=== PATIENT | female | born 1985 | race African-American/Black ===

== ENCOUNTER → 2016-11-21 | Outpatient (CLI) | payer SELFPAY ==
--- NOTE | 2016-11-21 15:36 | RADIOLOGY REPORT (SQ) ---
EXAM DESCRIPTION: U/S [id number] TRNABD 1GES W/ODOP COMPLETED DATE/TIME: 11/21/2016 3:24 pm REASON FOR STUDY: ENCOUNTER FOR SUPERVISION OF OTHER NORMAL FIRST TRIMESTER Z34.[address] FOR SUPRVSN OF NORMAL , FIRST TRIM COMPARISON: None. TECHNIQUE: Transabdominal static and realtime grayscale images acquired of the pelvis. Additional se lected spectral and color Doppler images recorded. All images stored on PACs. bHCG: None available LIMITATIONS: None. FINDINGS: FETUS: Living intrauterine . EGA: 10 weeks 4 days DUNCAN: 06/15/2017 FHR: 171 beats per minute. SUBCHORIONIC BLEED: No SIZE OF BLEED: Not applicable. UTERUS: No masses. No anomalies. Uterus is 11 x 9 x 7 cm in size. CERVICAL LENGTH: 3 cm Closed. RIGHT ADNEXA: Normal ovary with normal vascular flow. Right ovary 3.4 x 2.1 x 1.7 cm in size No adnexal free fluid. No adnexal masses. LEFT ADNEXA: Not visualized due to adnexal bowel gas. FREE FLUID: None. OTHER: No other significant finding. IMPRESSION: LIVING INTRAUTERINE . EGA 10 weeks 4 days Trimester of : First - 0 to 13 weeks. TECHNICAL DOCUMENTATION: JOB ID: [id number] [employer]- All Rights Reserved
== END ==
LOC: RAD 14:52
PROVIDERS: ATTEND Nurse Practitioner Women's Health
DX: Z34.81 Encounter for supervision of other normal pregnancy, first trimester (principal)
CPT/HCPCS: 76801

== ENCOUNTER → 2017-01-31 | Outpatient (CLI) | payer SELFPAY ==
--- NOTE | 2017-01-31 15:09 | RADIOLOGY REPORT (SQ) ---
EXAM DESCRIPTION: U/S OB 14+ TRNABD 1GES W/O DOP COMPLETED DATE/TIME: 01/31/2017 2:24 pm REASON FOR STUDY: Z34.82 ENCOUNTER FOR SUPRVSN OF NORMAL , SECOND TRIMESTER Z34.82 ENCOUNT ER FOR SUPRVSN OF NORMAL , SECOND TRI COMPARISON: None. TECHNIQUE: Static and Dynamic grayscale imaging performed of gravid uterus using transabdominal appr oach. Additional selected color Doppler and spectral images recorded. All stored on PACS. LIMITATIONS: None. FINDINGS: EGA: 20 week 5 day. DUNCAN: 06/15/2017. EFW: 377 g. grams IRENE: Largest pocket 5.7 cm. PLACENTA: Anterior. GRADE: I PRESENTATION: Breech. ANATOMY: HEART RATE: 155 beats per minute. FOUR CHAMBER HEART: Visualized. THREE VESSEL CORD: Yes. CORD INSERTION: Visualized. KIDNEYS AND BLADDER: Visualized. Appear normal. STOMACH: Visualized. Appears normal. SPINE: Limited visualization due to positioning. BRAIN AND LATERAL VENTRICLES: Visualized. Appear normal. OTHER: No other significant finding. MATERNAL ADNEXA: Maternal ovaries not visualized. CERVICAL LENGTH: 4.0 cm. Closed. OTHER: No other significant finding. IMPRESSION: LIVING INTRAUTERINE . ESTIMATED GESTATIONAL AGE 20 WEEK 5 DAY. NO VISUALIZED ANOMALIES. Trimester of : Second trimester - 13 weeks 1 day to 27 weeks 6 days. TECHNICAL DOCUMENTATION: JOB ID: [id number] [employer] All Rights Reserved
== END ==
LOC: RAD 13:37
PROVIDERS: ATTEND Nurse Practitioner Women's Health
DX: Z34.82 Encounter for supervision of other normal pregnancy, second trimester (principal)
CPT/HCPCS: 76805

== ENCOUNTER → 2017-04-07 | Outpatient (CLI) | payer SELFPAY ==
--- NOTE | 2017-04-07 16:52 | RADIOLOGY REPORT (SQ) ---
EXAM DESCRIPTION: U/S OB 14+ TRNABD 1GES W/O DOP COMPLETED DATE/TIME: 04/07/2017 4:08 pm REASON FOR STUDY: ENCOUNTER FOR SUPERVISION OF OTHER NORMAL , THIRD TRIMESTER Z34.83 ENCOU NTER FOR SUPRVSN OF NORMAL , THIRD TRIM COMPARISON: 01/31/2017. TECHNIQUE: Static and Dynamic grayscale imaging performed of gravid uterus using transabdominal appr oach. Additional selected color Doppler and spectral images recorded. All stored on PACS. LIMITATIONS: A complete anatomic survey was performed. FINDINGS: EGA: 30 week 4 day. DUNCAN: 06/12/2017. EFW: 1510 g. grams PERCENTILE: 46%. IRENE: 12.1 cm. PLACENTA: Anterior. GRADE: I PRESENTATION: Breech. ANATOMY: HEART RATE: 160 beats per minute. SPINE: Normal as visualized. MATERNAL ADNEXA: Maternal ovaries not visualized. CERVICAL LENGTH: Not adequately visualized. OTHER: No other significant finding. IMPRESSION: LIVING INTRAUTERINE . ESTIMATED GESTATIONAL AGE 30 WEEK 4 DAY. NO GROSS ABNORMALITY. A COMPLETE AND SURVEY WAS NOT PERFORMED. Trimester of : Third trimester - 28 weeks to delivery. TECHNICAL DOCUMENTATION: JOB ID: [id number] [employer]- All Rights Reserved Reading location - IP/workstation name: [email or web address]
== END ==
LOC: WI 14:37
PROVIDERS: ATTEND Nurse Practitioner Women's Health
DX: Z34.83 Encounter for supervision of other normal pregnancy, third trimester (principal)
CPT/HCPCS: 76805

== ENCOUNTER 2017-05-28 15:58 | Outpatient (CLI) | payer MEDICAID ==
[2017-05-28 16:37] LABS: ABSOLUTE LYMPHOCYTES (AUTO) 1.5 10^3/uL (0.5-4.7); ABSOLUTE MONOCYTES (AUTO) 0.3 10^3/uL (0.1-1.4); ABSOLUTE NEUT (AUTO) 4.8 10^3/uL (1.7-8.2); BASOPHILS % (AUTO) 0.2 % (0-2); EOSINOPHILS % (AUTO) 0.4 % (0-6); HEMATOCRIT 35.9 % (36.0-47.0); LYMPHOCYTES % (AUTO) 21.9 % (13-45); MEAN CORPUSCULAR HEMOGLOBIN 28.2 pg (27.0-33.4); MEAN CORPUSCULAR HGB CONC 33.4 g/dL (32.0-36.0); MEAN CORPUSCULAR VOLUME 84 fl (80-97); MONOCYTES % (AUTO) 4.3 % (3-13); PLATELET COUNT 207 10^3/uL (150-450); RED BLOOD COUNT 4.26 10^6/uL (3.72-5.28); RED CELL DISTRIBUTION WIDTH 14.7 % (11.5-14.0); SEGMENTED NEUTROPHILS % (AUTO) 73.2 % (42-78); TOTAL CELLS COUNTED % (AUTO) 100 %; WHITE BLOOD COUNT 6.6 10^3/uL (4.0-10.5)
[2017-05-28 16:45] LABS: APPEARANCE,URINE SLIGHTLY-CLOUDY; BILIRUBIN,URINE NEGATIVE (NEGATIVE); COLOR,URINE YELLOW; GLUCOSE, URINE NEGATIVE (NEGATIVE); KETONES,URINE NEGATIVE (NEGATIVE); LEUKOCYTE ESTERASE,URINE NEGATIVE (NEGATIVE); NITRITE,URINE NEGATIVE (NEGATIVE); PROTEIN,URINE NEGATIVE (NEGATIVE); URINE SPECIFIC GRAVITY 1.018; UROBILINOGEN,URINE NEGATIVE mg/dL (<2.0)
[2017-05-28 16:57] LABS: ALANINE AMINOTRANSFERASE 19 U/L (9-52); ALBUMIN 3.6 g/dL (3.5-5.0); ALKALINE PHOSPHATASE 76 U/L (38-126); ANION GAP 12 (5-19); ASPARTATE AMINO TRANSFERASE 17 U/L (14-36); BILIRUBIN,DIRECT 0.3 mg/dL (0.0-0.4); BILIRUBIN,TOTAL 0.3 mg/dL (0.2-1.3); BLOOD UREA NITROGEN 11 mg/dL (7-20); CALCIUM 10.1 mg/dL (8.4-10.2); CARBON DIOXIDE 21 mmol/L (22-30); CHLORIDE 107 mmol/L (98-107); GLUCOSE 110 mg/dL (75-110); LDH 440 U/L (313-618); POTASSIUM 4.5 mmol/L (3.6-5.0); SODIUM 139.7 mmol/L (137-145); TOTAL PROTEIN 6.2 g/dL (6.3-8.2); URIC ACID 4.5 mg/dL (2.5-6.2)
[2017-05-28 17:01] LABS: URINE AMPHETAMINES SCREEN NEGATIVE; URINE BARBITURATES SCREEN NEGATIVE; URINE BENZODIAZEPINES SCREEN NEGATIVE; URINE COCAINE SCREEN NEGATIVE; URINE MARIJUANA (THC) SCREEN NEGATIVE; URINE METHADONE SCREEN NEGATIVE; URINE PHENCYCLIDINE SCREEN NEGATIVE
[2017-05-28 17:05] LABS: UR PRO/CREAT RATIO RESULT 0.1 mg/mg (0.0-0.2); URINE CREATININE 107.8 mg/dL (16-327); URINE PROTEIN 12.8 mg/dL (<12)
--- NOTE | 2017-05-28 17:16 | Non Stress Test Report ---
Non Stress Test Datetime Report Generated by CPN: 05/28/2017 17:16 INDICATION Indication for Study: Ordered by Provider MONITORING Monitor Explained: Monitor Explained; Test Explained; Patient Verbalized Understanding Time on Monitor: 05/28/2017 16:46 Time off Monitor: 05/28/2017 17:16 Time off Monitor: 05/28/2017 17:10 NST Duration: 30 NST INTERVENTIONS NST Interventions: PO Hydration Physician Notified NST: Dr Hinkle BABY A: [id number] BABY A Movement : Present Contraction Frequency : none FHR Baseline : 145 Accelerations : 15X15 Decelerations : None Variability : Moderate 6-25bpm NST Review: Meets Criteria for Reactive NST NST Review and Verified By : D Bellavance RNC NST Results: Reactive NST REPORT Report Trigger: Send Report
== END 2017-05-28 17:21 | disposition home or self-care (01) ==
LOC: LC 15:58
PROVIDERS: ATTEND Student in an Organized Health Care Education/Training Program
PROC: 4A1HXCZ Monitoring of Products of Conception, Cardiac Rate, External Approach (ICD-10-PCS; principal; 2017-05-28)
DX: O14.93 Unspecified pre-eclampsia, third trimester (principal); Z3A.37 37 weeks gestation of pregnancy
CPT/HCPCS: 36415; 80053; 80307; 81001; 82570; 83615; 84156; 84550; 85025

== ENCOUNTER 2017-06-05 14:04 | Outpatient (CLI) | payer MEDICAID ==
[2017-06-05 14:46] LABS: APPEARANCE,URINE CLOUDY; BILIRUBIN,URINE NEGATIVE (NEGATIVE); COLOR,URINE YELLOW; GLUCOSE, URINE NEGATIVE (NEGATIVE); KETONES,URINE NEGATIVE (NEGATIVE); LEUKOCYTE ESTERASE,URINE SMALL (NEGATIVE); NITRITE,URINE NEGATIVE (NEGATIVE); PROTEIN,URINE 30 mg/dL (NEGATIVE); URINE SPECIFIC GRAVITY 1.023; UROBILINOGEN,URINE NEGATIVE mg/dL (<2.0)
[2017-06-05 15:07] LABS: URINE AMPHETAMINES SCREEN NEGATIVE; URINE BARBITURATES SCREEN NEGATIVE; URINE BENZODIAZEPINES SCREEN NEGATIVE; URINE COCAINE SCREEN NEGATIVE; URINE MARIJUANA (THC) SCREEN NEGATIVE; URINE METHADONE SCREEN NEGATIVE; URINE PHENCYCLIDINE SCREEN NEGATIVE
[2017-06-05 15:28] LABS: UR PRO/CREAT RATIO RESULT 0.1 mg/mg (0.0-0.2); URINE CREATININE 113.3 mg/dL (16-327); URINE PROTEIN 9.9 mg/dL (<12)
[2017-06-05 16:18] LABS: ALANINE AMINOTRANSFERASE 23 U/L (9-52); ALBUMIN 3.4 g/dL (3.5-5.0); ALKALINE PHOSPHATASE 84 U/L (38-126); ANION GAP 13 (5-19); ASPARTATE AMINO TRANSFERASE 20 U/L (14-36); BILIRUBIN,DIRECT 0.2 mg/dL (0.0-0.4); BILIRUBIN,TOTAL 0.2 mg/dL (0.2-1.3); BLOOD UREA NITROGEN 10 mg/dL (7-20); CALCIUM 9.4 mg/dL (8.4-10.2); CARBON DIOXIDE 21 mmol/L (22-30); CHLORIDE 105 mmol/L (98-107); GLUCOSE 85 mg/dL (75-110); LDH 419 U/L (313-618); POTASSIUM 4.4 mmol/L (3.6-5.0); SODIUM 138.9 mmol/L (137-145); TOTAL PROTEIN 6.3 g/dL (6.3-8.2); URIC ACID 4.4 mg/dL (2.5-6.2)
--- NOTE | 2017-06-05 16:49 | Non Stress Test Report ---
Non Stress Test Datetime Report Generated by CPN: 06/05/2017 16:48 DEMOGRAPHIC EGA NST: 38.3 INDICATION Indication for Study: Ordered by Provider MONITORING Monitor Explained: Monitor Explained; Test Explained; Patient Verbalized Understanding Time on Monitor: 06/05/2017 14:20 Time off Monitor: 06/05/2017 16:36 NST Duration: 136 NST INTERVENTIONS NST Interventions: PO Hydration; Reposition Patient Physician Notified NST: Dr. Hinkle BABY A: [id number] BABY A Movement : Present Contraction Frequency : Irregular FHR Baseline : 140 Accelerations : 15X15 Decelerations : None Variability : Moderate 6-25bpm NST Review: Meets Criteria for Reactive NST NST Review and Verified By : Anita Perez RN NST Results: Reactive NST REPORT Report Trigger: Send Report
== END 2017-06-05 16:47 | disposition home or self-care (01) ==
LOC: LC 14:04
PROVIDERS: ATTEND Student in an Organized Health Care Education/Training Program
PROC: 4A1HXCZ Monitoring of Products of Conception, Cardiac Rate, External Approach (ICD-10-PCS; principal; 2017-06-05)
DX: O47.1 False labor at or after 37 completed weeks of gestation (principal); O99.283 Endocrine, nutritional and metabolic diseases complicating pregnancy, third trimester; E86.0 Dehydration; Z3A.38 38 weeks gestation of pregnancy
CPT/HCPCS: 36415; 59025; 80053; 80307; 81001; 82570; 83615; 84156; 84550

== ENCOUNTER 2017-06-09 21:03 | Inpatient (IN) | payer MEDICAID ==
[2017-06-09] MEDS ORDERED: DINOPROSTONE 10 MG VAGINAL INSERT.SR PV PRN (21:32)
[2017-06-09] MEDS ORDERED: RINGERS SOLUTION,LACTATED 300 ML IV ONE (21:32)
--- NOTE | 2017-06-09 21:45 | Admission Physical ---
Datetime Report Generated by CPN: 06/09/2017 21:44 CURRENT ADMISSION Chief Complaint: Scheduled Induction of Labor Indication for Induction: Gestational HTN Admit Impression : Term, Intrauterine ; No Active Labor; Intact Membranes; Induction of Labor Admit Plan: Admit to Unit; Initiate Labor Induction Protocol ALLERGIES Medication Allergies: No Medication Allergies: No Known Allergies (05/28/2017) Latex: No Latex Allergies Food Allergies: none Environmental Allergies: none OBSTETRICAL HISTORY EDC: 06/16/2017 00:00 : 2 Para: 0 Term: 0 : 0 SAB: 0 IAB: 1 Ectopic: 0 Livin Cesareans: 0 VBACs: 0 Multiple Births: 0 Gestational Diabetes: No Rh Sensitization: No Incompetent Cervix: No HAYLEY: No Infertility: No ART Treatment: No Uterine Anomaly: No IUGR: No Hx Previous C/S: No Macrosomia: No Hx Loss/Stillborn: No PIH: No Hx : No Placenta Previa/Abruption: No Depression/PP Depression: No PTL/PROM: No Post Hemorrhage: No Current Procedures: Ultrasound; NST Obstetrical History Comments: g1- EAB 2008 g2- current SEE RECORDS Alcohol: No Marijuana : No Cocaine: No Other Illicit Drugs: No Cigarettes: Never Smoker. [id number] MEDICAL HISTORY Diabetes: No Blood Transfusion: No Pulmonary Disease (Asthma, TB): No Breast Disease: No Hypertension: Yes Water Vessel Captain Surgery: No Heart Disease: No Hosp/Surgery: No Autoimmune Disorder: No Anesthetic Complications: No Kidney Disease: No Abnormal Pap Smear: No Neuro/Epilepsy: No Psychiatric Disorders: No Other Medical Diseases: No Hepatitis/Liver Disease: No Significant Family History: No Varicosities/Phlebitis: No Trauma/Violence : No Thyroid Dysfunction: No Medical History Comments: gestational hypertension INFECTIOUS HISTORY Gonorrhea: No Genital Herpes: No Chlamydia: No Tuberculosis: No Syphilis: No Hepatitis: No HIV/AIDS Exposure: No Rash or Viral Illness: No HPV: No PHYSICAL EXAM General: Normal HEENT: Normal Neurologic: Normal Thyroid: Deferred Heart: Normal Lungs: Normal Breast: Deferred Back: Normal Abdomen: Normal Genitourinary Exam: Normal Extremities: Normal DTRs: Normal Pelvic Type: Adequate Vital Signs: Reviewed Details Vital Signs: labile BPs VAGINAL EXAM Contraction Comments: rare MEMBRANES Membranes: Intact FETUS A EGA: 39.0 Monitoring: External US FHR- Baseline: 155 Variability: Moderate 6-25bpm Accelerations: 10X10 Decelerations: None FHR Category: Category II Presentation: Vertex Admit Comment: 32yo at 39.0ega presents for IOL due to GHTN with labile BPs. 24 hr UTP negative previously and was supposed to turn in another one but IOL scheduled before return ofn 24 hr UTP. c/b [facility] transfer at 37wks with only one visit there in Nov then no care until approx 05/20 (GBS and GC/CT done) and then 3 visits at [facility]. IRENE decreased on 06/06 from prior week but still within normal limits. Vertex presentation. Anticipate . Pelvis unproven. PLANS FOR LABOR AND DELIVERY Labor and Delivery: None Pain Management: Epidural Feeding Preference: Breast Benefit of Breast Feed Discussed: Yes Circumcision: Yes INFORMED CONSENT Informed Consent Obtained: Vaginal Delivery; Induction of Labor; Risks, Benefits and Alternatives Discussed Signature: with User ID: [email or web address]
[2017-06-09 21:56] LABS: ABSOLUTE EOSINOPHILS # (AUTO) 0.1 10^3/uL (0.0-0.6); ABSOLUTE MONOCYTES (AUTO) 0.5 10^3/uL (0.1-1.4); ABSOLUTE NEUT (AUTO) 4.6 10^3/uL (1.7-8.2); BASOPHILS % (AUTO) 0.4 % (0-2); EOSINOPHILS % (AUTO) 0.7 % (0-6); HEMATOCRIT 37.7 % (36.0-47.0); HEMOGLOBIN 12.6 g/dL (12.0-15.5); LYMPHOCYTES % (AUTO) 28.1 % (13-45); MEAN CORPUSCULAR HEMOGLOBIN 28.4 pg (27.0-33.4); MEAN CORPUSCULAR HGB CONC 33.5 g/dL (32.0-36.0); MEAN CORPUSCULAR VOLUME 85 fl (80-97); MONOCYTES % (AUTO) 7.3 % (3-13); PLATELET COUNT 200 10^3/uL (150-450); RED BLOOD COUNT 4.45 10^6/uL (3.72-5.28); RED CELL DISTRIBUTION WIDTH 14.5 % (11.5-14.0); SEGMENTED NEUTROPHILS % (AUTO) 63.5 % (42-78); TOTAL CELLS COUNTED % (AUTO) 100 %; WHITE BLOOD COUNT 7.2 10^3/uL (4.0-10.5)
[2017-06-09 22:00] LABS: APPEARANCE,URINE SLIGHTLY-CLOUDY; BILIRUBIN,URINE NEGATIVE (NEGATIVE); COLOR,URINE YELLOW; GLUCOSE, URINE NEGATIVE (NEGATIVE); KETONES,URINE TRACE mg/dL (NEGATIVE); LEUKOCYTE ESTERASE,URINE NEGATIVE (NEGATIVE); NITRITE,URINE NEGATIVE (NEGATIVE); PROTEIN,URINE 30 mg/dL (NEGATIVE); URINE SPECIFIC GRAVITY 1.026
[2017-06-09] MEDS ORDERED: ACETAMINOPHEN 325 MG TABLET PO ONE (22:01)
[2017-06-09] MEDS ORDERED: ACETAMINOPHEN 325 MG TABLET ONE (22:04)
[2017-06-09] MEDS: RINGERS SOLUTION,LACTATED 1,000 ML IV PRN (22:06)
[2017-06-09 22:15] LABS: URINE CREATININE 199.9 mg/dL (16-327); URINE PROTEIN 8.3 mg/dL (<12)
[2017-06-09 22:31] LABS: URINE AMPHETAMINES SCREEN NEGATIVE; URINE BARBITURATES SCREEN NEGATIVE; URINE BENZODIAZEPINES SCREEN NEGATIVE; URINE COCAINE SCREEN NEGATIVE; URINE MARIJUANA (THC) SCREEN NEGATIVE; URINE METHADONE SCREEN NEGATIVE; URINE PHENCYCLIDINE SCREEN NEGATIVE
[2017-06-09] MEDS ORDERED: DINOPROSTONE 10 MG VAGINAL INSERT.SR ONE (22:55)
[2017-06-10] MEDS ORDERED: ACETAMINOPHEN 325 MG TABLET ONE ×3 (03:51→23:06)
[2017-06-10] MEDS ORDERED: MISOPROSTOL 0.1 MG TABLET PV ONE (12:16)
[2017-06-10] MEDS ORDERED: MISOPROSTOL 0.2 MG TABLET PO ONE (12:16)
[2017-06-10] MEDS ORDERED: MISOPROSTOL 0.1 MG TABLET ONE ×2 (12:56→17:43)
[2017-06-10] MEDS ORDERED: PROMETHAZINE HCL INJ 25 MG/1 ML VIAL ONE (21:23)
[2017-06-10] MEDS ORDERED: NALBUPHINE HCL INJ 10 MG/1 ML AMPULE ONE (21:24)
[2017-06-10] MEDS ORDERED: OXYTOCIN/NORMAL SALINE 20 UNIT/1,000 ML RTUINJ ONE (23:07)
[2017-06-11] MEDS ORDERED: EPHEDRINE SULFATE INJ 50 MG/1 ML AMPULE ONE (00:32)
[2017-06-11] MEDS ORDERED: FENTANYL/BUPIVACAINE/NS/PF 300 MCG/150 ML RTUINJ EPI ONE (00:32)
[2017-06-11] MEDS ORDERED: FENTANYL CITRATE INJ/PF 100 MCG/2 ML AMPUL ONE (00:32)
[2017-06-11] MEDS ORDERED: PHENYLEPHRINE HCL INJ/PF 10 MG/1 ML SDV ONE (00:32)
[2017-06-11] MEDS ORDERED: BUPIVACAINE HCL 0.25 % INJ/PF (2.5 MG/1 ML) 30 ML VIAL ONE (00:32)
[2017-06-11] MEDS: RINGERS SOLUTION,LACTATED 1,000 ML IV PRN (01:44)
[2017-06-11] MEDS ORDERED: MISOPROSTOL 0.2 MG TABLET ONE (03:03)
[2017-06-11] MEDS ORDERED: LIDOCAINE 1% INJ-PF (10 MG/ML) 30 ML SDV ONE (03:03)
--- NOTE | 2017-06-11 08:12 | L&D Progress Notes ---
PROGRESS NOTES Datetime Report Generated by CPN: 06/11/2017 08:12 PROGRESS NOTE Impression: Normal Progression of Labor; Reassuring Heart Rate Plan: Continue Present Management; Induction Informed Consent Obtained: Vaginal Delivery Informed Consent Obtained: Vaginal Delivery; Induction of Labor; Risks, Benefits and Alternatives Discussed Vital Signs : Reviewed; Within Normal Limits Comment: resting on left side, feeling more pressure, Cat 1 strip, uc's q 3 min Anticipate VAGINAL EXAM Contractions: rare MEMBRANES Membranes: Ruptured Membranes: Intact FETUS A Decelerations: Early Presentation: Vertex SIGNATURE SIGNATURE: ,[id number] SIGNATURE: [id number] SIGNATURE: [id number] SIGNATURE: ,[id number] Assignment: Jessi Green MD Signature: with User ID: [email or web address] : with User ID: [email or web address]
[2017-06-11] MEDS ORDERED: DIPHENHYDRAMINE HCL 50 MG CAPSULE PO ONE (09:59)
[2017-06-11] MEDS ORDERED: DIPHENHYDRAMINE HCL 50 MG/ML VIAL ONE (10:06)
[2017-06-11] MEDS ORDERED: ACETAMINOPHEN 325 MG TABLET ONE (10:06)
[2017-06-11] MEDS ORDERED: ACETAMINOPHEN 325 MG TABLET PO ONE (10:14)
--- NOTE | 2017-06-11 11:10 | L&D Progress Notes ---
PROGRESS NOTES Datetime Report Generated by CPN: 06/11/2017 11:10 PROGRESS NOTE Impression: Reassuring Heart Rate Procedures: Sterile Vag Exam Plan: Continue Present Management; Induction Comment: VE = thick ant lip, vtx/0, + bloody show. on left side, feeling pressure, change positions, anticipate , Cat 1 strip FETUS C SIGNATURE: 13,[id number];14,[id number];10,[id number] Assignment: Jessi Green MD Signature: with User ID: [email or web address] : with User ID: [email or web address]
--- NOTE | 2017-06-11 12:29 | L&D Progress Notes ---
PROGRESS NOTES Datetime Report Generated by CPN: 06/11/2017 12:28 PROGRESS NOTE Impression: Reassuring Heart Rate Procedures: Sterile Vag Exam Plan: Induction Vital Signs : Reviewed; Within Normal Limits Comment: Pushing, Cat 1 strip, variables with pushing, mod variability, uc's q 2 min x 60 sec, continue pushing. monitor closely FETUS C SIGNATURE: [id number];[id number];13,[id number] Assignment: Jessi Green MD Signature: with User ID: [email or web address] : with User ID: [email or web address]
[2017-06-11] MEDS ORDERED: AMPICILLIN SOD INJ 2 GM VIAL ONE (12:52)
[2017-06-11] MEDS ORDERED: AMPICILLIN SOD INJ 2 GM VIAL IV ONE (12:59)
[2017-06-11] MEDS ORDERED: GLYCERIN/WITCH HAZEL LEAF 1 EACH MED..PAD TP PRN (13:16)
[2017-06-11] MEDS ORDERED: ZOLPIDEM TARTRATE 5 MG TABLET PO PRN (13:16)
[2017-06-11] MEDS ORDERED: NA PHOS,M-B/NA PHOS,DI-BA (ADULT) 133 ML ENEMA PR PRN (13:16)
[2017-06-11] MEDS ORDERED: OXYTOCIN/NORMAL SALINE 20 UNIT/1,000 ML RTUINJ IV PRN (13:16)
[2017-06-11] MEDS ORDERED: PROMETHAZINE HCL 25 MG SUPP.RECT PR PRN (13:16)
[2017-06-11] MEDS ORDERED: BENZOCAINE/MENTHOL AEROSOL SPRAY 56 ML TOP PRN (13:16)
[2017-06-11] MEDS ORDERED: DIPH/PERTUSS(ACELL)/TETANUS VAC/PF 0.5 ML SYR (>=10YO) IM PRN (13:16)
[2017-06-11] MEDS ORDERED: DIPHENHYDRAMINE HCL 25 MG CAPSULE PO PRN (13:16)
[2017-06-11] MEDS ORDERED: PROMETHAZINE HCL 25 MG TABLET PO PRN (13:16)
[2017-06-11] MEDS ORDERED: ACETAMINOPHEN 650 MG SUPP.RECT PR PRN (13:16)
[2017-06-11] MEDS ORDERED: MAGNESIUM HYDROXIDE SUSP 30 ML UDCUP PO PRN (13:16)
[2017-06-11] MEDS ORDERED: PSEUDOEPHEDRINE HCL 30 MG TABLET PO PRN (13:16)
[2017-06-11] MEDS ORDERED: DIBUCAINE 1% OINTMENT 28 GM TP PRN (13:16)
[2017-06-11] MEDS ORDERED: PROMETHAZINE HCL INJ 25 MG/1 ML VIAL IV PRN (13:16)
[2017-06-11] MEDS ORDERED: MEASLES,MUMPS&RUBELLA VACC/PF 0.5 ML VIAL SUBCUT PRN (13:16)
--- NOTE | 2017-06-11 13:42 | Warning Signs in Babies ---
VOD Warning Signs Datetime Report Generated by [facility]: 06/11/2017 13:42 VOD#608 -Warning Signs in Babies: Viewed with Parent(s)/Family (06/11/2017 13:36:Vania Eduardo RN)
[2017-06-11] MEDS: IBUPROFEN 800 MG TABLET PO SCH ×2 (14:39→22:23)
[2017-06-11] MEDS ORDERED: IBUPROFEN 800 MG TABLET ONE (14:40)
--- NOTE | 2017-06-11 16:14 | Delivery Summary ---
Del Sum A-C Datetime Report Generated by CPN: 06/11/2017 16:14 DELIVERY PERSONNEL DELIVERY PERSONNEL: [id number] Delivery Doctor:: Jessi Green MD Nurse Oss Architect Certified:: Ella Delgado CNM Labor and Delivery Nurse:: Vania Eduardo RNschool age program associate Nurse:: ERIK White Nursery Nurse:: Naima Koo RN Lens Fabricating Machine Tender/NATURAL REMEDY CONSULTANT: Madison Espitia, REGIONAL MERCHANDISING MANAGER Lens Fabricating Machine Tender/NATURAL REMEDY CONSULTANT: Suad Scott NATURAL REMEDY CONSULTANT II MATERNAL INFORMATION Delivery Anesthesia: Epidural Medications After Delivery: Pitocin Bolus-Please Comment; Pitocin Drip 20 Units/1000ml NSS; Cytotec 600mcg Per Rectum/Vagina Meds After Delivery Comment: pitocin 20 units bolusing after delivery of placenta Maternal Complications: Chorioamnionitis Provider Comments: Pt not pushng well. tachy, maternal temp, Dr. Green notified Baby delivered by Kiwi vac by Dr. Green from OA to WILL over intact perineum, left vaginal abrasion, baby placed on mothers abd, cord clamped and cut by FOB after 2 minutes. Baby bonding with mom and father, + skin to skin. Pt as given Ampicillin 2 gm before delivery for elevated temp Spont delivery of grossly nl intact placenta, 3 vc, 3 sutures for vaginal abrasion IV Pitocin, massage and cytotec 600 mcg via rectum Baby and mom remain in recovery in stable condition LABOR SUMMARY EDC: 06/16/2017 00:00 No. Babies in Womb: 1 Attempted: No Labor Anesthesia: Epidural LABOR INFORMATION Reason for Induction: Gestational Hypertension Onset of Labor: 06/11/2017 02:51 Complete Dilatation: 06/11/2017 12:15 Cervical Ripening Agents: Cervidil; Cytotec @ Oxytocin: Induction Group B Beta Strep: Negative Antibiotics # of Doses: 1 Antibiotics Time of Last Dose: 1302 Name of Antibiotic Given: Ampicillin Steroids Given: None Reason Steroids Not Administered: Not Applicable MEMBRANES Membranes Rupture Method: Spontaneous Rupture of Membranes: 06/11/2017 06:43 Length of Rupture (hr): 6.47 Amniotic Fluid Color: Clear Amniotic Fluid Amount: Small Amniotic Fluid Odor: Foul STAGES OF LABOR Stage 1 hr: 9 Stage 1 min: 24 Stage 2 hr: 0 Stage 2 min: 56 Stage 3 hr: 0 Stage 3 min: 4 Total Time in Labor hr: 10 Total Time in Labor min: 24 VAGINAL DELIVERY Episiotomy: None Laceration #1: Vaginal Laceration Extension #1: First Degree Laceration Repair Note: 3-0 chromic Sponge Count Correct: N/A Sharps Count Correct: Yes CSECTION DELIVERY Primary Indication: N/A Secondary Indication: N/A CSection Incidence: N/A Labor: N/A Elective: N/A CSection Incision: N/A BABY A INFORMATION Delivery Date/Time: 06/11/2017 13:11 Method of Delivery: Vaginal Born in Route : No : N/A Forceps: N/A Vacuum Extraction: Successful Shoulder Dystocia : No PRESENTATION/POSITION BABY A Presentation: Cephalic Cephalic Presentation: Vertex Vertex Position: Right Occipital Anterior Breech Presentation: N/A PLACENTA INFORMATION BABY A Placenta Delivery Time : 06/11/2017 13:15 Placenta Method of Delivery: Spontaneous Placenta Status: Delivered SCORES BABY A Heart Rate 1 min: >100 bpm Resp Effort 1 min: Slow, Irregular Reflex Irritability 1 min: Cough or Sneeze or Pulls Away Muscle Tone 1 min: Active Motion Color 1 min: Blue/Pale Resuscitation Effort 1 min: Tactile Stimulation SCORE 1 MIN: 7 Heart Rate 5 min: >100 bpm Resp Effort 5 min: Good Cry Reflex Irritability 5 min: Cough or Sneeze or Pulls Away Muscle Tone 5 min: Active Motion Color 5 min: Body [place], Extremities Blue Resuscitation Effort 5 min: N/A SCORE 5 MIN: 9 Resuscitation Effort 10 min: N/A INFORMATION BABY A Gestational Age at Delivery: 39.2 Gestational Status: Full Term- 39- 40.6 Weeks Outcome : Liveborn Condition : Stable Sex: Male IDENTIFICATION BABY A Infant Verification Date/Time: 06/11/2017 13:54 ID Band Number: [id number] Mother's Name Verified: Yes RN Verifying : Mona Camp RNC Additional Verifying Personnel: Crystal Cheyenne RN WEIGHT/LENGTH BABY A Birthweight (gm): 3330 Infant Weight (lb): 7 Infant Weight (oz): 5 Infant Length (in): 20.25 Length (cm): 51.44 CORD INFORMATION BABY A No. Cord Vessels: 3 Nuchal Cord : N/A Cord Blood Taken: Yes-For Storage (Mom's Blood type +) Suction: None ASSESSMENT BABY A Complications: Extended Tachycardia; Multiple Late Decels; Multiple Variable Decels Physical Findings at Delivery: Caput Succedaneum; Puncture Wound from Scalp Electrode Respirations: Appears Normal Skin to Skin: Yes Skin to Skin Time (min): 10 Nail Galvanizer/ALS Called : No Care By: Enrique Koo RN Transferred To: Remains with Mother BABY B INFORMATION : N/A
[2017-06-11] MEDS: FERROUS SULFATE 325 MG TABLET PO SCH (19:34)
[2017-06-11] MEDS: DOCUSATE SODIUM 100 MG CAPSULE PO SCH (19:34)
[2017-06-11] MEDS: ACETAMINOPHEN WITH CODEINE #3 TABLET PO PRN (19:35)
[2017-06-11] MEDS: FAMOTIDINE 20 MG TABLET PO SCH (22:23)
[2017-06-12] MEDS: IBUPROFEN 800 MG TABLET PO SCH ×3 (06:15→23:13)
[2017-06-12 08:49] LABS: HEMOGLOBIN 10.5 g/dL (12.0-15.5); MEAN CORPUSCULAR HEMOGLOBIN 28.7 pg (27.0-33.4); MEAN CORPUSCULAR HGB CONC 33.8 g/dL (32.0-36.0); MEAN CORPUSCULAR VOLUME 85 fl (80-97); PLATELET COUNT 132 10^3/uL (150-450); RED BLOOD COUNT 3.66 10^6/uL (3.72-5.28); RED CELL DISTRIBUTION WIDTH 14.9 % (11.5-14.0); WHITE BLOOD COUNT 9.7 10^3/uL (4.0-10.5)
[2017-06-12] MEDS: PRENATAL VITAMIN W DHA CAPSULE PO SCH (09:16)
[2017-06-12] MEDS: SENNOSIDES/DOCUSATE 8.6-50 MG 1 EACH TABLET PO SCH (09:16)
[2017-06-12] MEDS: FAMOTIDINE 20 MG TABLET PO SCH (09:16)
[2017-06-12] MEDS: DOCUSATE SODIUM 100 MG CAPSULE PO SCH ×2 (09:17→17:49)
[2017-06-12] MEDS: FERROUS SULFATE 325 MG TABLET PO SCH ×2 (09:17→17:49)
--- NOTE | 2017-06-12 09:50 | PDOC PROGRESS REPORT ---
Subjective-OB Progress Note for:: 06/12/17 Physical Exam (OB) Vital Signs: Temp Pulse Resp BP Pulse Ox 98.6 F 86 18 130/79 H 96 06/12/17 08:46 06/12/17 08:46 06/12/17 08:46 06/12/17 08:46 06/12/17 08:46 - PIH/Pre-Eclampsia DTR's: 1 + Clonus: Negative Headache: Absent Epigastric Pain: No Visual Changes: No - Lochia Lochia Amount: Scant < 10 ml Lochia Color: Rubra/Red - Abdomen Description: Soft Hernia Present: No Bowel Sounds: Normoactive Flatus Presence: Present Stool: No Fundal Description: Firm, Midline Fundal Height: u/u - u/2 Objective-Diagnostic Laboratory: 06/12/17 08:26 06/12/17 08:26 WBC 9.7 RBC 3.66 L Hgb 10.5 L D Hct 31.0 L MCV 85 MCH 28.7 MCHC 33.8 RDW 14.9 H Plt Count 132 L
[2017-06-12] MEDS: ACETAMINOPHEN WITH CODEINE #3 TABLET PO PRN (16:09)
[2017-06-13] MEDS: FAMOTIDINE 20 MG TABLET PO SCH ×2 (01:55→10:24)
[2017-06-13 03:50] VITALS: BP 131/69
[2017-06-13] MEDS: IBUPROFEN 800 MG TABLET PO SCH ×2 (06:00→15:46)
--- NOTE | 2017-06-13 09:53 | PDOC DISCHARGE SUMMARY ---
Final Diagnosis Discharge Date: 06/13/17 Discharge Data - Discharge Medication Prescriptions: Acetaminophen with Codeine [Tylenol #3 Tablet] 2 each PO Q4HP PRN #14 tablet PRN Reason: Docusate Sodium [Colace 100 mg Capsule] 100 mg PO BID #60 capsule Ferrous Sulfate [Feosol 325 mg Tablet] 325 mg PO BID #60 tablet Ibuprofen [Motrin 800 mg Tablet] 800 mg PO Q8 #60 tablet Home Medications: Vit/Iron Fum/Folic AC [ Tablet] 1 each PO DAILY 05/28/17 Acetaminophen with Codeine [Tylenol #3 Tablet] 2 each PO Q4HP PRN #14 tablet 05/28 Docusate Sodium [Colace 100 mg Capsule] 100 mg PO BID #60 capsule 06/13/17 Ferrous Sulfate [Feosol 325 mg Tablet] 325 mg PO BID #60 tablet 06/13/17 Ibuprofen [Motrin 800 mg Tablet] 800 mg PO Q8 #60 tablet 06/13/17 Gestational Age: 39.2 Reason(s) for Admission: Induction of Labor, PIH Procedures: NST Intrapartum Procedure(s): Vacuum Extraction - [place] Data Baby 1 Male at 1 minute: 7 at 5 minutes: 9 Weight: 3330 kg Home with Mother: Yes Complications: No - Diagnosis Test Laboratory: Temp Pulse Resp BP Pulse Ox 98.1 F 89 17 131/69 H 98 06/13/17 03:30 06/13/17 03:30 06/13/17 03:30 06/13/17 03:30 06/13/17 03:30 06/09/17 06/09/17 06/12/17 21:18 21:43 08:26 RBC 4.45 3.66 L Hgb 12.6 10.5 L D Hct 37.7 31.0 L Urine Opiates Screen NEGATIVE - Discharge information/Instructions Discharge Activity: Activity As Tolerated, No Lifting Over 10 Pounds, Pelvic Rest, No tub bath Discharge Diet: Regular Disposition: HOME, SELF-CARE Follow up with: [facility] in: 1, Weeks
[2017-06-13] MEDS: DOCUSATE SODIUM 100 MG CAPSULE PO SCH ×2 (10:21→17:08)
[2017-06-13] MEDS: SENNOSIDES/DOCUSATE 8.6-50 MG 1 EACH TABLET PO SCH (10:23)
[2017-06-13] MEDS: FERROUS SULFATE 325 MG TABLET PO SCH ×2 (10:24→17:08)
[2017-06-13] MEDS: PRENATAL VITAMIN W DHA CAPSULE PO SCH (10:26)
[2017-06-13] MEDS: ACETAMINOPHEN WITH CODEINE #3 TABLET PO PRN ×2 (11:03→16:46)
--- NOTE | 2017-06-13 12:16 | Delivery Summary ---
Del Sum A-C Datetime Report Generated by CPN: 06/13/2017 12:15 DELIVERY PERSONNEL DELIVERY PERSONNEL: [id number] Delivery Doctor:: Jessi Green MD Nurse Continuous Weld Pipe Mill Supervisor Certified:: Ella Delgado CNM Labor and Delivery Nurse:: Vania Eduardo RNtree faller Nurse:: ERIK White Nursery Nurse:: Naima Koo RN Vault Person/LICENSING ANALYST: Madison Espitia, MOTOR VEHICLE TECHNICIAN Vault Person/LICENSING ANALYST: Suad Scott LICENSING ANALYST II MATERNAL INFORMATION Delivery Anesthesia: Epidural Medications After Delivery: Pitocin Bolus-Please Comment; Pitocin Drip 20 Units/1000ml NSS; Cytotec 600mcg Per Rectum/Vagina Meds After Delivery Comment: pitocin 20 units bolusing after delivery of placenta Maternal Complications: Chorioamnionitis Provider Comments: Pt not pushng well. tachy, maternal temp, Dr. Green notified Baby delivered by Kiwi vac by Dr. Green from OA to WILL over intact perineum, left vaginal abrasion, baby placed on mothers abd, cord clamped and cut by FOB after 2 minutes. Baby bonding with mom and father, + skin to skin. Pt as given Ampicillin 2 gm before delivery for elevated temp Spont delivery of grossly nl intact placenta, 3 vc, 3 sutures for vaginal abrasion IV Pitocin, massage and cytotec 600 mcg via rectum Baby and mom remain in recovery in stable condition LABOR SUMMARY EDC: 06/16/2017 00:00 No. Babies in Womb: 1 Attempted: No Labor Anesthesia: Epidural LABOR INFORMATION Reason for Induction: Gestational Hypertension Onset of Labor: 06/11/2017 02:51 Complete Dilatation: 06/11/2017 12:15 Cervical Ripening Agents: Cervidil; Cytotec @ Cervical Ripening Agents: Cytotec @ 25 mcg, PV Cervical Ripening Agents: Cytotec @ 25 mcg, pv Cervical Ripening Agents: Cytotec @ 50 mcg PO Oxytocin: Induction Group B Beta Strep: Negative Antibiotics # of Doses: 1 Antibiotics Time of Last Dose: 1302 Name of Antibiotic Given: Ampicillin Steroids Given: None Reason Steroids Not Administered: Not Applicable MEMBRANES Membranes Rupture Method: Spontaneous Rupture of Membranes: 06/11/2017 06:43 Length of Rupture (hr): 6.47 Amniotic Fluid Color: Clear Amniotic Fluid Amount: Small Amniotic Fluid Odor: Foul STAGES OF LABOR Stage 1 hr: 9 Stage 1 min: 24 Stage 2 hr: 0 Stage 2 min: 56 Stage 3 hr: 0 Stage 3 min: 4 Total Time in Labor hr: 10 Total Time in Labor min: 24 VAGINAL DELIVERY Episiotomy: None Laceration #1: Vaginal Laceration Extension #1: First Degree Laceration Repair Note: 3-0 chromic Sponge Count Correct: N/A Sharps Count Correct: Yes CSECTION DELIVERY Primary Indication: N/A Secondary Indication: N/A CSection Incidence: N/A Labor: N/A Elective: N/A CSection Incision: N/A BABY A INFORMATION Delivery Date/Time: 06/11/2017 13:11 Method of Delivery: Vaginal Method of Delivery: Vaginal Born in Route : No : N/A Forceps: N/A Vacuum Extraction: Successful Shoulder Dystocia : No PRESENTATION/POSITION BABY A Presentation: Cephalic Cephalic Presentation: Vertex Vertex Position: Right Occipital Anterior Breech Presentation: N/A PLACENTA INFORMATION BABY A Placenta Delivery Time : 06/11/2017 13:15 Placenta Method of Delivery: Spontaneous Placenta Status: Delivered SCORES BABY A Heart Rate 1 min: >100 bpm Resp Effort 1 min: Slow, Irregular Reflex Irritability 1 min: Cough or Sneeze or Pulls Away Muscle Tone 1 min: Active Motion Color 1 min: Body [place], Extremities Blue Resuscitation Effort 1 min: Tactile Stimulation SCORE 1 MIN: 8 Heart Rate 5 min: >100 bpm Resp Effort 5 min: Good Cry Reflex Irritability 5 min: Cough or Sneeze or Pulls Away Muscle Tone 5 min: Active Motion Color 5 min: Body [place], Extremities Blue Resuscitation Effort 5 min: N/A SCORE 5 MIN: 9 Resuscitation Effort 10 min: N/A INFANT INFORMATION BABY A Gestational Age at Delivery: 39.2 Gestational Status: Full Term- 39- 40.6 Weeks Outcome : Liveborn Infant Condition : Stable Infant Sex: Male Sex: Male IDENTIFICATION BABY A Infant Verification Date/Time: 06/11/2017 13:54 ID Band Number: [id number] Mother's Name Verified: Yes RN Verifying Infant: Mona Camp C Additional Verifying Personnel: SWIIM System [place] RN WEIGHT/LENGTH BABY A Birthweight (gm): 3330 Infant Weight (lb): 7 Infant Weight (oz): 5 Infant Length (in): 20.25 Length (cm): 51.44 CORD INFORMATION BABY A No. Cord Vessels: 3 Nuchal Cord : N/A Cord Blood Taken: Yes-For Storage ([facility]'s Blood type +) Infant Suction: None ASSESSMENT BABY A Infant Complications: Extended Tachycardia; Multiple Late Decels; Multiple Variable Decels Physical Findings at Delivery: Caput Succedaneum; Puncture Wound from Scalp Electrode Infant Respirations: Appears Normal Skin to Skin: Yes Skin to Skin Time (min): 10 Outreach Educator/ALS Called : No Care By: Enrique Koo RN Transferred To: Remains with Mother BABY B INFORMATION : N/A
== END 2017-06-13 18:05 | disposition home or self-care (01) | DRG 775 ==
LOC: LR 21:03 → 2S 06-11 15:49
PROVIDERS: ADMIT Obstetrics & Gynecology; ATTEND Obstetrics & Gynecology
PROC: 10D07Z6 Extraction of Products of Conception, Vacuum, Via Natural or Artificial Opening (ICD-10-PCS; principal; 2017-06-11)
PROC: 0HQ9XZZ Repair Perineum Skin, External Approach (ICD-10-PCS; 2017-06-11)
DX: O13.4 Gestational [pregnancy-induced] hypertension without significant proteinuria, complicating childbirth (principal); O41.1230 Chorioamnionitis, third trimester, not applicable or unspecified; O70.0 First degree perineal laceration during delivery; O76 Abnormality in fetal heart rate and rhythm complicating labor and delivery; Z3A.39 39 weeks gestation of pregnancy; Z37.0 Single live birth
CPT/HCPCS: 36415; 80307; 81001; 82570; 84156; 85025; 85027; 86592; 86850; 86900; 86901; 94760; J0290; J1200; J2300; J2370; J2550; J2590; J3010; J3490